=== PATIENT | male | born 1965 | race Caucasian/White ===

== ENCOUNTER 2018-12-11 12:59 | Emergency (ER) | payer OTHER ==
[2018-12-11 13:10] VITALS: BP 143/77
[2018-12-11] MEDS ORDERED: ERYTHROMYCIN OPHTH OINT 1 GM TUBE LEFTEYE STA (13:33)
--- NOTE | 2018-12-11 13:36 | ED Physician Documentation ---
PD HPI OPHTHO - Stated complaint Stated Complaint: LT EYE IRRITATION - Chief complaint Chief Complaint: Heent - History obtained from History obtained from: Patient - History of Present Illness Timing - onset: How many days ago (4) Timing - duration: Days (4) Timing - details: Still present Location: Left Quality / character: Aching Associated symptoms: Swelling Similar symptoms before: Has not had sx before - Additional information Additional information: The patient is a 53-year-old male who complains of puffiness and redness of his left eye, starting 4 days ago. He feels tenderness along the lower lid. He denies any change in his visual acuity. He denies history of similar symptoms in the past. He does report that he recently got new glasses, and he also uses CPAP and got a new harness for his CPAP mask. He is visiting here from [place], and plans to be here for the rest of this week. Review of Systems Constitutional: denies: Fever Eyes: reports: Irritation. denies: Decreased vision Ears: denies: Ear pain Nose: denies: Congestion Throat: denies: Sore throat Cardiac: denies: Chest pain / pressure Respiratory: denies: Dyspnea, Cough GI: denies: Nausea, Vomiting Skin: denies: Rash Neurologic: denies: Headache PD PAST MEDICAL HISTORY - Past Medical History Respiratory: CPAP use - Present Medications Home Medications: Ambulatory Orders Medication Instructions Recorded Confirmed Erythromycin Base [Erythromycin 1 gm LEFTEYE QID #1 oint...g. 12/11/18 Ophthalmic Ointment] cephALEXin [Cephalexin] 500 mg PO TID #20 tablet 12/11/18 - Allergies Allergies/Adverse Reactions: Allergies Allergy/AdvReac Type Severity Reaction Status Date / Time No Known Drug Allergies Allergy Verified 12/11/18 13:45 - Social History Additional Social History: Visiting here from [place]. PD ED PE NORMAL - Vitals Vital signs reviewed: Yes (Borderline systolic hypertension.) - General General: Alert and oriented X 3, Well developed/nourished, Other (Overweight.) - HEENT HEENT: Atraumatic, PERRL, EOMI, Pharynx benign, Other (There is swelling of the left lower eyelid with tenderness to palpation, consistent with stye.) - Neck Neck: Supple, no meningeal sign, No adenopathy - Respiratory Respiratory: No respiratory distress - Derm Derm: No rash Results - Vitals Vitals: Vital Signs - 24 hr 12/11/18 13:07 Temperature 36.6 C Heart Rate 91 Respiratory 16 Rate Blood Pressure 143/77 H O2 Saturation 98 Oxygen O2 Source Room air PD MEDICAL DECISION MAKING - ED course Complexity details: considered differential, d/w patient, d/w family ED course: The patient's presentation is most consistent with a stye of the lower lid. There is no evidence of conjunctival inflammation. Treatment in the emergency department included administration of erythromycin ophthalmic ointment. He is being discharged with prescription for cephalexin. I discussed with him and his the expected course of illness, antibiotic treatment and outpatient follow-up, as well as potentially worrisome signs or symptoms that should prompt reevaluation in the emergency department. Departure - Departure Disposition: 01 Home, Self Care Clinical Impression: Stye Qualifiers: Laterality: left Eyelid: lower Qualified Code(s): H00.015 - Hordeolum externum left lower eyelid Condition: Stable Instructions: ED Hordeolum Prescriptions: cephALEXin [Cephalexin] 500 mg PO TID #20 tablet Erythromycin Base [Erythromycin Ophthalmic Ointment] 1 gm LEFTEYE QID #1 oint...g. Comments: Apply hot packs to your left eye intermittently for the next 3 or 4 days. Apply erythromycin ophthalmic ointment 4 times daily. You can use cephalexin as prescribed. Follow-up with your primary physician upon return to [place]. Return to the emergency department if you develop increasing redness or swelling of your eye, or otherwise worsening symptoms.
== END 2018-12-11 14:04 | disposition home or self-care (01) ==
LOC: ED 12:59
DX: H00.015 Hordeolum externum left lower eyelid (principal)
CPT/HCPCS: 99283; J3490